=== PATIENT | female | born 1990 | race Caucasian/White ===

== ENCOUNTER 2020-09-08 14:17 | Emergency (ER) | payer OTHER, SELFPAY ==
[~2020-09-08] VITALS: Ht 160 cm; Wt 68.0 kg
[2020-09-08 14:57] VITALS: BP 109/62
--- NOTE | 2020-09-08 15:10 | NUR ---
30/F C/O INTERMITTENT FATIGUE, N/V, F/C, BAKER, MYALGIA, RUNNY NOSE, DECREASED SENSE OF SMELL, AND SOB WITH AMBULATION SINCE 09/02/20. REQUESTING COVID TEST. 010 PAIN. VSS. APPEARS NAD. HX- DENIES NKA
--- NOTE | 2020-09-08 15:40 | NUR ---
PT SWABBED FOR COVID, SAMPLE DROPPED OFF AT LAB WITH PAPERWORK
--- NOTE | 2020-09-08 15:56 | NUR ---
Patient discharged with v/s stable. Written and verbal after care instructions given and explained. Patient alert, oriented and verbalized understanding of instructions. Ambulatory with steady gait. All questions addressed prior to discharge. ID band removed. Patient advised to follow up with PMD. Rx of PROMETHAZINE, ALBUTEROL, IBUPROFEN, ACETAMINOPHEN given. Patient educated on indication of medication including possible reaction and side effects. Opportunity to ask questions provided and answered.
[2020-09-08 15:58] VITALS: BP 109/62
== END 2020-09-08 15:56 | disposition home or self-care (01) ==
LOC: MED 14:17
DX: R53.83 Other fatigue (principal); R11.2 Nausea with vomiting, unspecified; R50.9 Fever, unspecified; Z20.828 Contact with and (suspected) exposure to other viral communicable diseases
CPT/HCPCS: 99283; U0003

== ENCOUNTER 2023-07-25 10:28 | Emergency (ER) | payer OTHER ==
[~2023-07-25] VITALS: Ht 160 cm; Wt 72.6 kg
[2023-07-25 10:30] VITALS: BP 116/67; PULSE 98; RESP 18; TEMP 99.7; O2SAT 98
[2023-07-25] MEDS ORDERED: KETOROLAC 30 MG/ML VIAL IM ONE (10:40)
[2023-07-25] MEDS ORDERED: KETOROLAC 30 MG/ML VIAL IVP ONE (11:05)
[2023-07-25 11:23] LABS: BASOPHILS % (AUTO) 0.5 % (0.0-2.0); EOSINOPHILS % (AUTO) 0.1 % (0.0-4.0); HEMATOCRIT 35.5 % (36-48); HEMOGLOBIN 11.8 g/dL (12.0-16.0); LYMPHOCYTES # (AUTO) 1.4 K/uL (2.5-16.5); LYMPHOCYTES % (AUTO) 15.1 % (20.5-51.1); MEAN CORPUSCULAR HEMOGLOBIN 28 pg (27-31); MEAN CORPUSCULAR HGB CONC 33 g/dL (33-37); MEAN CORPUSCULAR VOLUME 84.5 fL (80-94); MONOCYTES # (AUTO) 0.7 K/uL (0.8-1.0); MONOCYTES % (AUTO) 7.7 % (1.7-9.3); NEUTROPHILS # (AUTO) 7.3 K/uL (1.8-7.7); NEUTROPHILS % (AUTO) 76.6 % (42.2-75.2); PLATELET COUNT (AUTO) 357 K/uL (140-450); RED BLOOD CELL COUNT(AUTO) 4.19 MIL/uL (4.20-5.40); WHITE BLOOD COUNT (AUTO) 9.5 K/uL (4.8-10.8)
[2023-07-25 11:31] LABS: BILIRUBIN,URINE NEGATIVE (NEGATIVE); BLOOD, URINE 3+ (NEGATIVE); LEUKOCYTE ESTERASE ,URINE NEGATIVE (NEGATIVE); NITRITE, URINE POSITIVE (NEGATIVE); PROTEIN,URINE 1+ (NEGATIVE); UGLUCOSE NEGATIVE (NEGATIVE); UROBILINOGEN,URINE 0.2 EU/dL (0.2 - 1)
[2023-07-25 11:35] LABS: COLOR,URINE SL AMBER (YELLOW)
[2023-07-25 11:39] LABS: APPEARANCE,URINE HAZY (CLEAR)
[2023-07-25 11:40] LABS: BACTERIA,URINE 1+ /HPF (None Seen); RBC,URINE TOO NUMEROUS TO COUN /HPF (0-5); SQUAMOUS EPITHELIAL CELL,UR 0-3 (FEW) /LPF (0-3 (FEW)); WBC,URINE 0-5 /HPF (0-5)
[2023-07-25 11:42] LABS: ALBUMIN 3.5 g/dL (3.4-5.0); ANION GAP 12.1 (8-16); CALCIUM 9.1 mg/dL (8.5-10.1); CARBON DIOXIDE 26.3 mmol/L (21-32); CREATININE 0.7 mg/dL (0.6-1.3); POTASSIUM 3.4 mmol/L (3.5-5.1); TOTAL BILIRUBIN 0.2 mg/dL (0.0-1.0); TOTAL PROTEIN, SERUM 8.1 g/dL (6.4-8.2)
[2023-07-25] MEDS ORDERED: KETOROLAC 30 MG/ML VIAL IVP SCH (11:45)
[2023-07-25 11:47] VITALS: O2SAT 98
[2023-07-25] MEDS ORDERED: CEPH-588 PO (12:04)
[2023-07-25] MEDS ORDERED: NACL 0.9% 1,000 ML IV ONE (12:05)
[2023-07-25] MEDS ORDERED: POTASSIUM CHLORIDE 10 MEQ TABER PO ONE (12:05)
[2023-07-25 12:28] LABS: FLU A ANTIGEN negative (NEGATIVE); FLU B ANTIGEN NEGATIVE (NEGATIVE)
[2023-07-25] MEDS ORDERED: IBUP-2213 PO (12:31)
[2023-07-25] MEDS ORDERED: NIRM1TAB5 PO (12:31)
[2023-07-25 12:34] VITALS: BP 116/67; PULSE 98; RESP 18; TEMP 98.5; O2SAT 98
== END 2023-07-25 12:34 | disposition home or self-care (01) ==
LOC: MED 10:28
DX: U07.1 COVID-19 (principal); N39.0 Urinary tract infection, site not specified; E87.6 Hypokalemia; D64.9 Anemia, unspecified; F32.9 Major depressive disorder, single episode, unspecified; F41.9 Anxiety disorder, unspecified; Z79.899 Other long term (current) drug therapy
CPT/HCPCS: 36415; 80053; 81001; 81025; 83690; 85025; 87081; 87426; 87804; 96361; 96374; 99283; J1885; J7030